=== PATIENT | female | born 1985 | race Caucasian/White ===

== ENCOUNTER 2016-12-16 12:27 | Emergency (ER) | payer OTHER ==
[2016-12-16 12:40] VITALS: BP 124/86; PULSE 60; RESP 16; TEMP 97.7; O2SAT 97
--- NOTE | 2016-12-16 12:55 | EDPHY ---
H & P Stated Complaint: scratch from dog on her r hand on Friday. 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 He has had increasing redness and discomfort from it. She was sent in for evaluation. She has no other past medical history. Denies any fevers or chills. ROS: 10 point Review of Systems is negative except as noted in the HPI. PMH: None Social History: [No] smoking, [no] alcohol, [ no recreational drug use] Family History: [non-contributory] Physical Exam: General: Awake, alert, no acute distress Right hand: She has a 6 cm abrasion on the dorsal right hand. There is some moderate surrounding erythema. Has mild tenderness to the touch. She has full flexion extension. Is no bony tenderness. No significant swelling. She has capillary refill less than 2 seconds. Sensations intact in radial, median, and ulnar nerve distribution. Skin: Per hand exam, otherwise no rash. - Personal History LMP (Females 10-55): 1-7 Days Ago Current Tetanus Diphtheria and Acellular Pertussis (TDAP): Yes - Social History Smoking Status: Never smoked Constitutional: Initial Vital Signs Temperature (C) 36.5 C 12/16/16 12:38 Heart Rate 60 12/16/16 12:38 Respiratory Rate 16 12/16/16 12:38 Blood Pressure 124/86 H 12/16/16 12:38 O2 Sat (%) 97 12/16/16 12:38 O2 Delivery Mode Room Air Allergies/Adverse Reactions: No Known Allergies Allergy (Unverified 12/16/16 12:40) Home Medications: Medication Instructions Recorded Cephalexin [Keflex (*)] 500 mg PO Q6H #28 cap 12/16/16 FLUoxetine 12/16/16 Obcp 12/16/16 traZODone 12/16/16 Departure - Departure Disposition: Home, Routine, Self-Care Clinical Impression: Abrasion Condition: Good Instructions: Abrasion (ED) Additional Instructions: Follow up with workman's Comp in 3-4 days for re-evaluation. Referrals: NONE *PRIMARY CARE P,. [Primary Care Provider] - As per Instructions Work Comp Referral [facility] [Outside] - As per Instructions Prescriptions: Cephalexin [Keflex (*)] 500 mg PO Q6H #28 cap
== END 2016-12-16 13:03 | disposition home or self-care (01) ==
LOC: CED 12:27
DX: S60.511A Abrasion of right hand, initial encounter (principal); W54.8XXA Other contact with dog, initial encounter; Y92.69 Other specified industrial and construction area as the place of occurrence of the external cause; Y99.0 Civilian activity done for income or pay